=== PATIENT | male | born 1955 | race Caucasian/White ===

== ENCOUNTER → 2017-04-04 | Outpatient (CLI) | payer OTHER ==
--- NOTE | 2017-04-04 10:59 | KCIC ---
MRI Thoracic Spine without contrast History: Mid thoracic pain, previous lung surgery Technique: Multiplanar, multi sequential noncontrast MR imaging was performed of the thoracic spine. Contrast: None Comparison: None Findings: Thoracic vertebral body stature is overall preserved other than multilevel Schmorl's nodes. AP alignment is overall adequate. Thoracic cord caliber is within normal limits without significant focal signal abnormality. There is no significant marrow edema. There is very mild dextroscoliosis. There is no significant thoracic spinal stenosis. There is moderate to severe degenerative disc disease at T9-10 and T10-11, to lesser degree at other more superior levels. There is shallow posterior bulge at T3-4. There is shallow posterior protrusion T4-T5. Neural foramina are not significantly narrowed. 2.8 cm T2 hyperintense lesion of the visualized left kidney is most likely a cyst. As seen on localizer, there are posterior bulges of the cervical spine at multiple levels with probable mild spinal stenosis. Impression: 1. There is no significant thoracic spinal stenosis or neural foramina compromise. There is multilevel degenerative disc disease greater inferiorly of the thoracic spine. Electronically signed by: Jaison Marsh MD (04/04/2017 10:55 AM) [id number]
== END | disposition home or self-care (01) ==
LOC: KCIC MRI 09:24
PROVIDERS: ATTEND Nurse Practitioner Family
DX: M51.34 Other intervertebral disc degeneration, thoracic region (principal)
CPT/HCPCS: 72146

== ENCOUNTER → 2017-06-21 | Outpatient (CLI) | payer OTHER | END | disposition home or self-care (01) | LOC: ECHO 09:14 | DX: I08.1 Rheumatic disorders of both mitral and tricuspid valves (principal); I25.10 Atherosclerotic heart disease of native coronary artery without angina pectoris | CPT/HCPCS: 93306 ==

== ENCOUNTER → 2017-09-21 | Outpatient (CLI) | payer OTHER | END | disposition home or self-care (01) | LOC: US 08:00 | DX: N28.89 Other specified disorders of kidney and ureter (principal); R16.0 Hepatomegaly, not elsewhere classified | CPT/HCPCS: 76705 ==